=== PATIENT | female | born 1940 | race Caucasian/White ===

== ENCOUNTER 2016-06-13 14:52 | Emergency (ER) | payer BC, OTHER ==
[~2016-06-13] VITALS: Ht 172.7 cm; Wt 80.0 kg
[2016-06-13] MEDS ORDERED: TYLENOL WITH C1 EACH PO (16:44)
[2016-06-13 16:55] VITALS: BP 132/64
== END 2016-06-13 16:55 | disposition home or self-care (01) ==
LOC: EXP 14:52 → EME 14:52 → EXP 16:55
DX: M25.531 Pain in right wrist (principal); S62.101D Fracture of unspecified carpal bone, right wrist, subsequent encounter for fracture with routine healing; W19.XXXD Unspecified fall, subsequent encounter; Y93.23 Activity, snow (alpine) (downhill) skiing, snowboarding, sledding, tobogganing and snow tubing
CPT/HCPCS: 73110; 99281; 99283